=== PATIENT | female | born 1975 | race Caucasian/White ===

== ENCOUNTER 2021-04-21 14:22 | Outpatient (CLI) | payer OTHER, SELFPAY ==
--- NOTE | ~2021-04-21 | XR_ITS ---
EXAMINATION: XR foot RT min 3V EXAM DATE: 04/21/2021 15:01 INDICATION: B/L pain in feet, deformity . TECHNIQUE: Right foot dorsoplantar, lateral and oblique projections obtained and reviewed. There is no prior study for comparison. FINDINGS: Right metatarsal bones unremarkable. Tiny inferior calcaneal spur. There are no acute frac tures or dislocations identified. There is no subcutaneous gas. The soft tissue is unremarkable. There are no radiopaque foreign bodies. IMPRESSION: The tiny right calcaneal inferior spur. Reviewed, dictated and finalized at location A. OGRAPHER'S MODEL
--- NOTE | ~2021-04-21 | XR_ITS ---
EXAMINATION: XR foot LT min 3V EXAM DATE: 04/21/2021 15:01 INDICATION: B/L pain in feet, deformity. TECHNIQUE: Left foot dorsoplantar, lateral and oblique projections obtained and reviewed. Images obt ained weightbearing. Correlation was made with contralateral foot same date. FINDINGS: Left metatarsal bones unremarkable. There is mild hallux valgus and bunion. There are no acute fractures or dislocations identified. There is no subcutaneous gas. The soft tissue is unrem arkable. There are no radiopaque foreign bodies. IMPRESSION: Mild left hallux valgus, bunion. Reviewed, dictated and finalized at location A. ERECTOR
== END 2021-04-21 14:23 | disposition home or self-care (01) ==
LOC: CHSIMG 14:30
PROVIDERS: Visit Provider Podiatrist
DX: M20.11 Hallux valgus (acquired), right foot (principal); M79.672 Pain in left foot; M79.671 Pain in right foot
CPT/HCPCS: 73630

== ENCOUNTER 2021-06-19 10:55 | Outpatient (CLI) | payer OTHER, SELFPAY ==
--- NOTE | ~2021-06-19 | XR_ITS ---
XR foot LT min 3V DATE: 06/19/2021 11:16 INDICATION: Surgery 2 weeks ago TECHNIQUE: 3 weightbearing views COMPARISON: 04/21/2021 left foot FINDINGS: Status post bunionectomy since 04/21/2021. There are 2 threaded fixation devices through the distal diametaphyseal area of the first metatarsal bone. There is minimal linear periosteal reaction along the medial aspect of the shaft of the first metatarsal bone, which is likely postoperative allyson nge. There is minimal plantar calcaneal enthesopathy. No fracture, dislocation, periosteal reaction or bone destruction is evident otherwise. IMPRESSION: Postoperative change from recent bunionectomy Reviewed, dictated and finalized at location A. GER OF PLANNING
== END 2021-06-19 10:56 | disposition home or self-care (01) ==
LOC: CHSIMG 10:56
PROVIDERS: Visit Provider Podiatrist
DX: Z98.890 Other specified postprocedural states (principal)
CPT/HCPCS: 73630

== ENCOUNTER 2021-07-10 08:39 | Outpatient (CLI) | payer OTHER, SELFPAY ==
--- NOTE | ~2021-07-10 | XR_ITS ---
XR foot LT min 3V 07/10/2021 09:04 Indication: Corrective surgery for bunions Procedure: 4 views left foot Comparison: Comparison to multiple prior studies sequentially, with oldest reviewed study dated 01/2021. Findings: There are surgical changes consistent with prior bunionectomy. There are 2 threaded fixatio n devices through the distal aspect of the first metatarsal. There is developing periosteal reaction. There is mild soft tissue swelling. Small degenerative calcaneal enthesophytes. Lisfranc joint intac t. No foreign bodies. Stable alignment of the first metatarsal. Impression: 1: Healing surgical changes status post recent left bunionectomy. Reviewed, dictated and finalized at location B. 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
== END 2021-07-10 08:40 | disposition home or self-care (01) ==
LOC: CHSIMG 08:42
PROVIDERS: Visit Provider Podiatrist
DX: Z98.890 Other specified postprocedural states (principal)
CPT/HCPCS: 73630

== ENCOUNTER 2022-01-12 19:11 | Emergency (ER) | payer BC, OTHER, SELFPAY ==
--- NOTE | ~2022-01-12 | CT_ITS ---
Patient Name: Patient Name MR#: Patient MRN Accession#: Accession Numbers EXAMINATION: CTA brain carotid DATE: 01/12/2022 21:03 INDICATION: R eyelid ptosis TECHNIQUE: Computed tomographic angiography (CTA) of the head was performed without and with 100 mL O mnipaque-350 intravenous contrast. CTA of the neck was performed with intravenous contrast. The dose- length product was 1205.31 mGy-cm. Maximum intensity projection and volume rendered 3D-reconstruction s were created by the technologist on a separate workstation. COMPARISON: None. FINDINGS: CTA NECK: Aortic arch and proximal great vessels: No significant dilation or atherosclerosis. Right common carotid, carotid bifurcation, and internal carotid artery: No plaque.There is 0% stenosi s of the proximal right internal carotid artery relative to normal distal artery lumen diameter (NASC ET criteria). Left common carotid, carotid bifurcation, and internal carotid artery: No plaque.There is 0% stenosis of the proximal left internal carotid artery relative to normal distal artery lumen diameter (NASCET criteria). Vertebral arteries: No significant plaque or stenosis. Vertebral arteries co-dominant. Other findings: None. CTA HEAD: No large vessel occlusion, aneurysm, high flow vascular malformation, nidus or extravasation. Persist ent origin of the right MATTRESS MAKER. 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 CT BRAIN: No acute large vessel infarct, intracranial hemorrhage, mass, or hydrocephalus. 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 Mucosal thickening in the inferior frontal sin uses and diffusely in the ethmoid air cells. Air-fluid level in the left maxillary sinus. IMPRESSION: 1. No acute intracranial process. 2. No large vessel occlusion. 3. No significant carotid or vertebral stenosis. 4. Acute sinusitis. Reviewed, dictated and finalized at location K.
[2022-01-12 19:20] VITALS: BP 119/71; PULSE 81; RESP 20; TEMP 36.8; O2SAT 99
[2022-01-12 20:15] VITALS: PULSE 84; RESP 20; O2SAT 100
[2022-01-12] MEDS: SODIUM CHLORIDE 0.9% IV 1,000 ML 999 ML IV CONT (20:15)
[2022-01-12] MEDS: ACETAMINOPHEN 500 MG TABLET 1000 MG PO (20:16)
[2022-01-12 20:17] LABS: Hematocrit 43.4 % (35.0-49.0); Hemoglobin 13.8 g/dL (12.0-15.0); Mean Corpuscular HGB Conc 31.8 g/dL (32.0-36.0); Mean Corpuscular Hemoglobin 29.4 pg (27.0-31.0); Mean Corpuscular Volume 92.3 fL (78.0-102.0); Platelet Count Result 278 K/mm3 (150-420); Red Cell Distribution Width 13.2 % (11.6-14.4); White Blood Count 8.9 K/mm3 (4.8-10.8)
[2022-01-12] MEDS: diphenhydrAMINE HCl INJ 50 MG/ML VIAL 25 MG IV PUSH (20:17)
[2022-01-12] MEDS: PROCHLORPERAZINE EDISYLATE 10 MG/2 ML VIAL IV PUSH (20:17)
--- NOTE | 2022-01-12 20:18 | ED.GENADULT ---
HPI - General Adult General Chief complaint: Headache Stated complaint: R eye drooping, headache History of Present Illness HPI narrative: this is a 46-year-old female presenting to ED chief complaint of headache and right eye drooping. Patient says her headache started approximately 8 days ago. This is associated with gradually worsening drooping of her right eye. Patient says she feels like she has a painful stabbing sensation behind her right eye. Patient has not noticed any changes in vision. She has not noticed any numbness tingling or weakness in any extremity. She denies diplopia. She denies jaw claudication or chewing. she denies neck pain, fever, chills no chest pain difficulty breathing nausea vomiting or diarrhea. She has no history of styes or periorbital cellulitis. She denies decreased sweating on the right side of her face. She called her primary care physician has appointment for tomorrow morning however she was instructed to go to the emergency department immediately for further evaluation Related Data Home Medications Medication Instructions Recorded Confirmed fluoxetine 10 mg capsule 10 mg PO DAILY 01/12/22 01/12/22 fluticasone fur. 200 mcg-umeclid 1 inh inhalation DAILY 01/12/22 01/12/22 62.5 mcg-vilant 25 mcg inhalat.powder (Trelegy Ellipta) ipratropium 0.5 mg-albuterol 3 mg 3 ml inhalation PRN PRN Shortness 01/12/22 01/12/22 (2.5 mg base)/3 mL nebulization Of Breath Or Wheezing soln montelukast 10 mg tablet 10 mg PO DAILY 01/12/22 01/12/22 Allergies Allergy/AdvReac Type Severity Reaction Status Date / Time latex Allergy Unknown Verified 01/12/22 19:33 Penicillins Allergy Unknown Verified 01/12/22 19:33 Review of Systems Constitutional: Constitutional: Denies fatigue Eyes: Eyes: Denies change in vision and Reports photophobia ENT: Denies dysphagia Cardiovascular: Cardiovascular: Denies chest pain Respiratory: Respiratory: Denies chest congestion Gastrointestinal: Gastrointestinal: Denies abdominal pain Genitourinary: Genitourinary: Denies hematuria Musculoskeletal: Musculoskeletal: Denies back pain Integumentary/Breasts: Skin/Breast: Denies rash Neurologic: Denies confusion, Denies vertigo, Denies dizziness, Denies syncope, Reports headache(s), Denies focal weakness, Denies numbness and Denies weakness Psychiatric: Psychiatric: Denies anxiety Endocrine: Endocrine: Denies excessive sweating Hematologic/Lymphatic: Hematologic/Lymphatic: Denies easy bleeding Allergic/Immunologic: Allergic/Immunologic: Denies lip swelling Exam Const: General: healthy appearing, no acute distress and alert Nutritional Appearance: well nourished Orientation/consciousness: patient oriented x3 HENMT: Head: normal to inspection ( No tenderness to palpation over the right mormon.) Ears: external ears normal General nose exam: Normal external nose present Face and sinus: normal facial exam Eyes: Conjunctivae: conjunctivae normal ( No conjunctival injection or limbic flush.) Pupils: Equal, round and reactive pupils present ( right pupil is equal/reactive to the left. There is no consensual photo) EOM: EOMs intact bilaterally Other: There is no pain on extraocular eye movements. There is some mild swelling of the tissue underneath the patient's eyebrow. There is no palpable mass or visible stye. Neck: Neck: normal visual inspection Chest: Chest palpation & inspection: normal inspection of the chest Resp: Effort & Inspection: normal respiratory effort Auscultation: no crackles, no rales, no rhonchi and no wheezes Cardio: Rate: regular rate Rhythm: regular rhythm GI: GI Palp: Yes Soft to palpation, No Tenderness to palpation present (GI) and No Guarding due to palpation present (GI) : General: Yes bladder normal to palpation Skin: General skin exam: normal color Neuro: General: patient oriented x3, moves all extremities, no meningeal signs, no focal motor defici
[2022-01-12 20:27] LABS: Anion Gap 8 mmol/L (8-16); Blood Urea Nitrogen 11 mg/dL (7-18); Calcium 8.6 mg/dL (8.5-10.1); Carbon Dioxide 29 mmol/L (21-32); Chloride 104 mmol/L (98-108); Estimated CRCL calculation 92 ml/min; Estimated Glomerular Filt Rate > 60; Glucose 93 mg/dL (70-99); Osmolality Calculated 291 mOsm/kg (285-295); Potassium 3.8 mmol/L (3.5-5.1); Sodium 141 mmol/L (136-145)
[2022-01-12 21:07] VITALS: BP 112/69; PULSE 77; RESP 18; O2SAT 96
[2022-01-12 21:55] VITALS: BP 120/74; PULSE 74; RESP 18; TEMP 36.6; O2SAT 97
== END 2022-01-12 21:58 | disposition home or self-care (01) ==
PROVIDERS: Emergency Provider Emergency Medicine
DX: J32.9 Chronic sinusitis, unspecified (principal); R51.9 Headache, unspecified
CPT/HCPCS: 36415; 70496; 70498; 80048; 85027; 96361; 96374; 96375; 99284; J0780; J1200; J7030; Q9967

== ENCOUNTER 2023-12-13 08:52 | Emergency (ER) | payer BC, SELFPAY ==
[2023-12-13 08:52] VITALS: BP 145/98; PULSE 78; RESP 20; TEMP 36.1; O2SAT 96
[2023-12-13 09:03] VITALS: BP 145/98; PULSE 78; RESP 20; TEMP 36.1; O2SAT 96
[2023-12-13] MEDS: KETOROLAC (*BKC) 60 MG/2 ML VIAL IM (09:15)
[2023-12-13] MEDS: ORPHENADRINE CITRATE 30 MG/ML 2 ML VIAL 60 MG IM (09:16)
--- NOTE | 2023-12-13 09:18 | ED.BACK ---
HPI - Back Pain/Injury General Chief Complaint: Back Pain/Injury Stated Complaint: back pain Time Seen by Provider: 12/13/23 09:05 Source: patient Mode of arrival: ambulatory Limitations: no limitations History of Present Illness HPI Narrative: this is a 48-year-old female with no significant past medical history was doing heavy lifting and causes pain in her left lower back radiating into her upper leg, describes pain is sharp and spasm radiating down her left leg with no saddle paresthesias no fever chills. The patient rates her pain about an 8/10 did try some [id number] medications with minimal relief. MD elicited complaint: back pain Onset (ago): day(s) Timing: constant Severity: moderate Pain scale (0-10): 8 Quality: sharp and spasming Location: lumbar spine Radiation: left upper leg Exacerbating factors: movement, sitting upright and walking Relieving factors: immobilization Context: while lifting, turning/twisting and bending Associated symptoms: denies other symptoms Related Data Home Medications Medication Instructions Recorded Confirmed budesonide-formoterol HFA 160 2 puff inhalation BID 12/13/23 12/13/23 mcg-4.5 mcg/actuation aerosol inhaler (Symbicort) Allergies Allergy/AdvReac Type Severity Reaction Status Date / Time latex Allergy Unknown Verified 12/13/23 08:58 Penicillins Allergy Unknown Verified 12/13/23 08:58 Review of Systems Review of Systems: All systems reviewed & are unremarkable except as noted in HPI and below PMFSH Past Medical History Medical History Patient denies medical problems Exam Const: General: healthy appearing, no acute distress and alert Nutritional Appearance: well nourished Orientation/consciousness: patient oriented x3 Limitations: no limitations Resp: Effort & Inspection: normal respiratory effort Auscultation: clear to auscultation bilaterally Cardio: Rate: regular rate Rhythm: regular rhythm GI: GI Palp: Yes Soft to palpation Auscultation: normal bowel sounds Back/Spine/Pelvis: Back: no CVA tenderness Skin: General skin exam: normal color Rashes: no rashes Neuro: General: patient oriented x3, moves all extremities, no meningeal signs and no focal motor deficits Extrem: Other: positive straight leg raising test on the left, with L4 left paravertebral tenderness with palpation Course Vital Signs Vital signs: Vital Signs Temperature 36.1 C L 12/13/23 08:52 Pulse Rate 78 12/13/23 08:52 Respiratory Rate 20 12/13/23 08:52 Blood Pressure 145/98 H 12/13/23 08:52 Pulse Oximetry 96 12/13/23 08:52 Oxygen Delivery Room Air 12/13/23 08:52 Temperature 36.1 C L 12/13/23 09:03 Pulse Rate 78 12/13/23 09:03 Respiratory Rate 20 12/13/23 09:03 Blood Pressure 145/98 H 12/13/23 09:03 Pulse Oximetry 96 12/13/23 09:03 Oxygen Delivery Room Air 12/13/23 09:03 Critical Care Time Critical Care Time Critical Care Time: No Discharge Plan Discharge Clinical Impression: Strain of lumbar region Qualifiers: Encounter type: initial encounter Qualified Code(s): S39.012A - Strain of muscle, fascia and tendon of lower back, initial encounter Sciatica Qualifiers: Laterality: left Qualified Code(s): M54.32 - Sciatica, left side Patient Disposition: Home, Self-Care Condition: Stable Instructions: Antibiotic Form, Sciatica (ED), Acute Low Back Pain (ED) Additional Instructions: advised take medicine as prescribed and follow up with primary if symptoms persist or worsen. Prescriptions: New tramadol 50 mg tablet 50 mg PO Q6H PRN (Reason: pain) Qty: 20 0RF cyclobenzaprine 5 mg tablet 5 mg PO TID Qty: 20 0RF No Action budesonide-formoterol [Symbicort] 160-4.5 mcg/actuation HFA aerosol inhaler 2 puff INHALATION BID Follow-up/Referrals: UNKNOWN,DOCTOR [Primary Care Provider] -
== END 2023-12-13 09:45 | disposition home or self-care (01) ==
PROVIDERS: Emergency Provider Emergency Medicine
DX: S39.012A Strain of muscle, fascia and tendon of lower back, initial encounter (principal); M54.32 Sciatica, left side
CPT/HCPCS: 96372; 99284; J1885; J2360